=== PATIENT | male | born 1950 | race Hispanic/Latino ===

== ENCOUNTER 2016-09-18 11:25 | Emergency (ER) | payer MEDICARE ==
[2016-09-18 11:30] VITALS: BP 134/90; PULSE 93; TEMP 97; BMI 30.3
[2016-09-18] MEDS ORDERED: Lidocaine/Epi 1% 1:100000 20 ML IJ ONE (11:57)
[2016-09-18] MEDS ORDERED: TDAP Vaccine 0.5 mL Syr IM ONE (11:57)
[2016-09-18 11:59] VITALS: RESP 18; O2SAT 99
[2016-09-18] MEDS ORDERED: Lidocaine 1% w Epi 1:100,000 Inj ONE (12:02)
--- NOTE | 2016-09-18 12:10 | ED PDOC ---
Upper Extremity Pain/Injury Time Seen by Provider: 09/18/16 11:53 Chief Complaint (Nursing): Trauma Chief Complaint (Provider): Trauma History Per: Patient History/Exam Limitations: no limitations Onset/Duration Of Symptoms: Mins Current Symptoms Are (Timing): Still Present Quality: "Pain" Pain Scale Rating Of: 4 Hands/Wrist ([facility]): 1 - Tenderness 2 - Tenderness Additional Complaint(s): 66 y/o M with no significant PMHx presents for R/hand laceration after a heavy wt fell on his hand. Patient c/o pain in the 1st interspace area. Denies weakness, tingling, numbness, heavy bleeding, vomiting or nausea. Patient is taking Aspirin 81 mg daily. Past Medical History Vital Signs: Last Vital Signs Temp 97 F L 09/18/16 11:54 Pulse 93 H 09/18/16 11:54 Resp 18 09/18/16 11:54 BP 134/90 09/18/16 11:54 Pulse Ox 99 09/18/16 11:54 - Medical History PMH: No Chronic Diseases Denies: Chronic Kidney Disease - Surgical History Surgical History: No Surg Hx - Family History Family History: States: No Known Family Hx - Social History Current smoker - smoking cessation education provided: No Ex-Smoker (has not smoked in the last 12 months): Yes Alcohol: None Drugs: Denies - Immunization History Hx Tetanus Toxoid Vaccination: No (needs tetanus) Hx Influenza Vaccination: No Hx Pneumococcal Vaccination: No - Home Medications Home Medications: Ambulatory Orders Medication Instructions Recorded Cephalexin [cephalexin] 1 tab PO BID #14 cap 09/18/16 Ibuprofen [Motrin] 1 tab PO TID PRN #30 tab 09/18/16 - Allergies Allergies/Adverse Reactions: Allergies Allergy/AdvReac Type Severity Reaction Status Date / Time No Known Allergies Allergy Verified 09/18/16 11:56 Review of Systems ROS Statement: Except As Marked, All Systems Reviewed And Found Negative Musculoskeletal: Positive for: Hand Pain, Other (Hand laceration) Physical Exam - Reviewed Nursing Documentation Reviewed: Yes Vital Signs Reviewed: Yes - Physical Exam Appears: Positive for: Non-toxic, No Acute Distress Eye Exam: Positive for: EOMI, PERRL Cardiovascular/Chest: Positive for: Regular Rate, Rhythm Respiratory: Positive for: Normal Breath Sounds Extremity: Positive for: Other (2 irregular linear laceration in 1st interspace area on the R/hand. 1 small laceration in the dorsal aspect of the 1st finger ) - ECG O2 Sat by Pulse Oximetry: 99 - Progress ED Course And Treament: Lacerations repaired: 4 stitches given to 1st interspace wound and 1 to 1st finger wound after numbing the area with Xilocaine. Procedure done without complications. Bacitracin applied and wound covered with 4x4 and kerlix. Hand Xray reviewed by me pending report: No fractures seen. Medical Decision Making Medical Decision Making: Hand laceration after trauma -Tetanus prophylaxis vaccination -Hand Xray -Laceration repair Disposition - Clinical Impression Clinical Impression: Laceration - Patient ED Disposition Is Patient to be Admitted: No - Disposition Disposition: Routine/Home Disposition Time: 13:10 Condition: IMPROVED Additional Instructions: F/U with PMD or retunrn to ED in 7 days for suture removal. Keep wound clean and dry. If bleeding, severe pain, fever or any other concerns return to ED. Prescriptions: Cephalexin [cephalexin] 1 tab PO BID #14 cap Ibuprofen [Motrin] 1 tab PO TID PRN #30 tab PRN Reason: Pain, Moderate (4-7) Instructions: Care For Your Stitches (ED), Laceration (DC) Print Language: FINNISH
--- NOTE | 2016-09-18 14:02 | RAD ---
PROCEDURE: Right Hand Radiographs. HISTORY: right hand trauma r/o fx COMPARISON: None. FINDINGS: BONES: There is no acute acute fracture dislocation identified. A tiny well corticated cyst is seen at the lateral portion of the middle phalanx distally, right long finger. Interphalangeus joints are narrowed with increased cortical density compatible with osteoarthritis diffusely. Similar change identified at the basal joint. Local soft tissues appear diffusely unremarkable. JOINTS: As above. SOFT TISSUES: As above. OTHER FINDINGS: None. IMPRESSION: No acute fracture dislocation is identified. Mild degenerate changes changes are seen throughout the interphalangeal joints with a nonaggressive cyst identified at the right long finger.
== END 2016-09-18 13:31 | disposition home or self-care (01) ==
LOC: H.ER 11:25
DX: S69.91XA Unspecified injury of right wrist, hand and finger(s), initial encounter (principal); W19.XXXA Unspecified fall, initial encounter; Y92.89 Other specified places as the place of occurrence of the external cause

== ENCOUNTER 2016-09-25 12:51 | Emergency (ER) | payer MEDICARE ==
[2016-09-25 12:51] VITALS: BMI 30.3
[2016-09-25 12:56] VITALS: BP 148/81; PULSE 68; RESP 20; TEMP 97.9; O2SAT 96
--- NOTE | 2016-09-25 13:22 | ED PDOC ---
HPI: Wound Care - HPI Time Seen by Provider: 09/25/16 12:52 Chief Complaint (Nursing): Suture/Staple Removal Chief Complaint (Provider): Suture removal History Per: Patient Exam Limitations: no limitations Onset/Duration Of Symptoms: Days (7 days ago ) Severity: None Additional Complaint(s): Pt had sutures placed 1 week ago in the right hand. No drainage. PT states he took the last antibiotic today. No fever/chills. PT states he has been cleaning it twice a day. Past Medical History Reviewed: Historical Data, Nursing Documentation, Vital Signs Vital Signs: Last Vital Signs Temp 97.9 F 09/25/16 12:55 Pulse 68 09/25/16 12:55 Resp 20 09/25/16 12:55 BP 148/81 09/25/16 12:55 Pulse Ox 96 09/25/16 12:55 - Medical History PMH: No Chronic Diseases Denies: Chronic Kidney Disease - Surgical History Surgical History: No Surg Hx - Family History Family History: States: No Known Family Hx - Living Arrangements Living Arrangements: With Family - Social History Current smoker - smoking cessation education provided: No Alcohol: None Drugs: Denies - Immunization History Hx Tetanus Toxoid Vaccination: No (needs tetanus) Hx Influenza Vaccination: No Hx Pneumococcal Vaccination: No - Home Medications Home Medications: Ambulatory Orders Medication Instructions Recorded Cephalexin [cephalexin] 1 tab PO BID #14 cap 09/18/16 Ibuprofen [Motrin] 1 tab PO TID PRN #30 tab 09/18/16 - Allergies Allergies/Adverse Reactions: Allergies Allergy/AdvReac Type Severity Reaction Status Date / Time No Known Allergies Allergy Verified 09/18/16 11:56 Review of Systems ROS Statement: Except As Marked, All Systems Reviewed And Found Negative Skin: Positive for: Other. Negative for: Rash Physical Exam - Reviewed Nursing Documentation Reviewed: Yes Vital Signs Reviewed: Yes - Physical Exam Appears: Positive for: Well, Non-toxic, No Acute Distress Head Exam: Positive for: ATRAUMATIC, NORMAL INSPECTION, NORMOCEPHALIC Skin: Positive for: Warm. Negative for: Normal Color ((+) 2 cm laceration with 4 intact sutures between the thumb and 2nd digit on the right, no draiange, no surrounding erythema ) Eye Exam: Positive for: Normal appearance ENT: Positive for: Normal ENT Inspection Neck: Positive for: Normal, Painless ROM Respiratory: Negative for: Accessory Muscle Use, Respiratory Distress Back: Positive for: Normal Inspection Extremity: Positive for: Normal ROM. Negative for: Tenderness Neurologic/Psych: Positive for: Alert, Oriented - ECG O2 Sat by Pulse Oximetry: 96 Pulse Ox Interpretation: Normal Medical Decision Making Medical Decision Making: Antibiotic ointment and dressing applied. Sutures removed wtih kit, well- tolerated. No complications. Disposition - Clinical Impression Clinical Impression: Removal of suture - Patient ED Disposition Is Patient to be Admitted: No Counseled Patient/Family Regarding: Diagnosis, Need For Followup - Disposition Disposition: Routine/Home Disposition Time: 13:52 Condition: GOOD Instructions: Stitches Removal (ED) Forms: [facility] (Sudanese)
== END 2016-09-25 14:08 | disposition home or self-care (01) ==
LOC: H.ER 12:51
DX: Z48.02 Encounter for removal of sutures (principal)